=== PATIENT | male | born 1995 | race Caucasian/White ===

== ENCOUNTER 2017-07-10 19:03 | Outpatient (CLI) | payer OTHER ==
--- NOTE | 2017-07-11 10:01 | Diagnostic Imaging Report ---
Exam: CT examination of the pelvis. HISTORY: Abdominal pain. Total DLP equals 379 CTDI equals 8.4 Findings: Multiple contiguous thin section of the abdomen pelvis obtained from lower thorax to pubic symphysis without the administration of oral or intravenous contrast material. No prior studies available comparison. The study demonstrates normal aeration of lung parenchyma the bases The liver and spleen are normal. The gallbladder is intact. The kidneys demonstrate no evidence of obstructive uropathy or nephrolithiasis. The adrenal glands intact. The appendix is normal. There is evidence for distention of the small bowel loops is fluid could might be suggestive of ileus. The urinary bladder is distended. The prostate gland is intact. No abnormal adenopathy is noted. There is no evidence of diverticular disease of diverticulitis. Bony structures demonstrate no evidence for lytic or blastic lesions. IMPRESSION: Question of mild ileus No evidence of diverticulitis No evidence of obstructive uropathy or hydronephrosis.
== END 2017-07-10 20:00 | disposition home or self-care (01) ==
LOC: EEVIPCON 19:03 → RAD 19:03
PROVIDERS: ATTEND Internal Medicine
DX: R10.9 Unspecified abdominal pain (principal)